=== PATIENT | female | born 1945 | race Caucasian/White ===

== ENCOUNTER 2016-12-18 07:49 | Day surgery (SDC) | payer MEDICARE, OTHER ==
[~2016-12-18] VITALS: Ht 160 cm; Wt 99.0 kg
[2016-12-18] MEDS ORDERED: LACTATED RINGERS 1,000 ML IV SCH (08:24)
[2016-12-18 08:27] VITALS: BP 143/82
[2016-12-18] MEDS ORDERED: LIDOCAINE 1%, 2ML SQ PRN (08:30)
[2016-12-18] MEDS ORDERED: METO1TAB18 PO (08:44)
[2016-12-18] MEDS ORDERED: VERA120T5 PO (08:44)
[2016-12-18] MEDS ORDERED: LOPRESSOR PO (08:45)
[2016-12-18] MEDS ORDERED: LIDOCAINE 1%, 2ML ONE (09:06)
[2016-12-18] MEDS ORDERED: OXYcodone 5 MG/5 ML ORAL.SOL UDC PO PRN (10:30)
[2016-12-18] MEDS ORDERED: hydrALAzine 20 MG/ML, 1ML IV PRN (10:30)
[2016-12-18] MEDS ORDERED: MEPERIDINE/PF 25MG/0.5ML IVPush PRN (10:30)
[2016-12-18] MEDS ORDERED: ACETAMINOPHEN 325 MG TABLET PO PRN (10:30)
[2016-12-18] MEDS ORDERED: LABETALOL 5MG/ML, 20ML IV PRN (10:30)
[2016-12-18] MEDS ORDERED: MIDAZOLAM 1 MG/ML, 2ML IV PRN (10:30)
[2016-12-18] MEDS ORDERED: PROMETHAZINE 25 MG/ML, 1ML IV PRN (10:30)
[2016-12-18] MEDS ORDERED: ONDANSETRON 2MG/ML, 2ML IVPush PRN (10:30)
[2016-12-18] MEDS ORDERED: HYDROmorphone 1 MG/ML, 1ML IV PRN (10:30)
[2016-12-18] MEDS ORDERED: FENTANYL PF 100 MCG/2ML IV PRN (10:30)
[2016-12-18] MEDS ORDERED: ALBUTEROL SULFATE 2.5 MG/3 ML NPPB PRN (10:30)
[2016-12-18] MEDS ORDERED: PROPOFOL 10 MG/ML, 20ML ONE (15:32)
[2016-12-18] MEDS ORDERED: DEXAMETHASONE 4 MG/ML, 1ML ONE (15:32)
[2016-12-18] MEDS ORDERED: ONDANSETRON 2MG/ML, 2ML ONE (15:32)
[2016-12-18] MEDS ORDERED: EPHEDRINE 50 MG/ML, 1ML ONE (15:32)
== END 2016-12-18 12:21 ==
LOC: OUT 07:49
PROVIDERS: ATTEND Internal Medicine Geriatric Medicine
DX: K22.8 Other specified diseases of esophagus (principal); K21.9 Gastro-esophageal reflux disease without esophagitis; K44.9 Diaphragmatic hernia without obstruction or gangrene; Z87.39 Personal history of other diseases of the musculoskeletal system and connective tissue; Z90.49 Acquired absence of other specified parts of digestive tract
CPT/HCPCS: 43238; 88104; 88172; 88173; 88305; 93005; J1100; J2405; J2704; J7120

== ENCOUNTER → 2017-10-23 | Outpatient (CLI) | payer MEDICARE, OTHER ==
[~2017-10-23] MED LIST: LOPRESSOR PO; METO1TAB18 PO; VERA120T5 PO
== END ==
LOC: STAR 13:45
PROVIDERS: ATTEND Internal Medicine Geriatric Medicine
DX: K22.8 Other specified diseases of esophagus (principal)
CPT/HCPCS: 93005

== ENCOUNTER → 2017-10-23 | Outpatient (CLI) | payer MEDICARE, OTHER | LOC: CFH 12:09 | PROVIDERS: ATTEND Obstetrics & Gynecology Gynecology | DX: Z12.31 Encounter for screening mammogram for malignant neoplasm of breast (principal) | CPT/HCPCS: 77067 ==

== ENCOUNTER 2017-10-29 08:52 | Day surgery (SDC) | payer MEDICARE, OTHER ==
[~2017-10-29] VITALS: Ht 160 cm; Wt 100.9 kg
[2017-10-29] MEDS ORDERED: LACTATED RINGERS 1,000 ML IV SCH (09:16)
[2017-10-29 09:42] VITALS: BP 144/88
[2017-10-29] MEDS ORDERED: PROPOFOL 10 MG/ML, 20ML ONE ×3 (10:57→11:13)
[2017-10-29] MEDS ORDERED: LIDOCAINE-MPF 2% ,5ML ONE (11:10)
[2017-10-29] MEDS ORDERED: ONDANSETRON 2MG/ML, 2ML IVPush PRN (11:30)
== END 2017-10-29 12:45 ==
LOC: OUT 08:52
PROVIDERS: ATTEND Internal Medicine Geriatric Medicine
DX: K22.8 Other specified diseases of esophagus (principal)
CPT/HCPCS: 43259; J2704; J3490; J7120

== ENCOUNTER 2020-02-12 10:04 | Outpatient (CLI) | payer MEDICARE, OTHER ==
[~2020-02-12 10:04] MED LIST changes: +VERA120T13 PO; -VERA120T5 PO
[2020-02-12 10:55] LABS: BASOPHILS # (AUTO) 0.03 x10^3/uL (0-0.1); BASOPHILS % (AUTO) 1 % (0-1); EOSINOPHILS # (AUTO) 0.09 x10^3/uL (0-0.4); EOSINOPHILS % (AUTO) 1 % (1-7); LYMPHOCYTES # (AUTO) 2.22 x10^3/uL (1-3.4); LYMPHOCYTES % (AUTO) 32 % (22-44); MD NO; MEAN CORPUSCULAR HEMOGLOBIN 30.1 pg (27.0-34.8); MEAN CORPUSCULAR HGB CONC 33.1 g/dL (32.4-35.8); MEAN CORPUSCULAR VOLUME 90.9 fL (80-100); MEAN PLATELET VOLUME 7.4 fL (7.4-10.4); MONOCYTES # (AUTO) 0.55 x10^3/uL (0.2-0.8); MONOCYTES % (AUTO) 8 % (2-9); NEUTROPHILS # (AUTO) 4.01 x10^3/uL (1.8-6.8); NEUTROPHILS % (AUTO) 58 % (42-75); PLATELET COUNT 247 x10^3/uL (130-400); RED BLOOD COUNT 5.09 x10^6/uL (3.82-5.3); RED CELL DISTRIBUTION WIDTH 14.3 % (9.6-15.2)
[2020-02-12 11:05] LABS: INTERNATIONAL NORMALIZED RATIO 1.1 (0.93-1.1); PROTHROMBIN TIME 11.7 Seconds (9.6-11.5)
[2020-02-12 11:07] LABS: ANION GAP 7 mmol/L (5-15); CHLORIDE 109 mmol/L (98-107); CREATININE 0.74 mg/dL (0.55-1.02)
[2020-02-12] MEDS ORDERED: [UNRECOGNIZED DRUG - CODE] PO (11:19)
[2020-02-12] MEDS ORDERED: LACT1CAP35 PO (11:19)
[2020-02-12] MEDS ORDERED: MULT-326 PO (11:19)
[2020-02-12] MEDS ORDERED: VERA180T6 PO (11:19)
== END 2020-02-12 23:59 | disposition home or self-care (01) ==
LOC: STAR 10:04
PROVIDERS: ATTEND Orthopaedic Surgery
DX: Z01.818 Encounter for other preprocedural examination (principal); M17.11 Unilateral primary osteoarthritis, right knee
CPT/HCPCS: 36415; 80048; 83036; 85025; 85610; 85730; 87081; 87147; 93005

== ENCOUNTER 2020-02-17 09:30 | Observation (INO) | payer MEDICARE, OTHER ==
[~2020-02-17] VITALS: Ht 157.5 cm; Wt 109.0 kg
[2020-02-17] MEDS: NS + 20MEQ KCL 1,000 ML IV SCH ×2 (06:50→20:49)
[2020-02-17] MEDS: DOCUSATE 100 MG CAPSULE PO SCH ×2 (09:00→20:48)
[~2020-02-17 09:30] MED LIST changes: +ACETAMINOPHEN 650 MG/20.3 ML UDC PO PRN; +BISACODYL 10 MG SUPP PR PRN; +DIPHENHYDRAMINE 50 MG CAPSULE PO PRN; +EPINEPHRINE 1 MG/ML, 1ML ONE; +HYDROmorphone 1 MG/ML, 1ML INJ IV PRN; +KETOROLAC 60 MG/2 ML ONE; +LACT1CAP35 PO; +MAGNESIUM HYDROXIDE 8%, 30ML UDC PO PRN; +METOPROLOL TARTRATE 50 MG TAB PO SCH; +MULT-326 PO; +OXYcodone IR 5MG TABLET PO PRN; +ROPIvacaine/PF 0.5%, 20 ML ONE; +ROPIvacaine/PF 0.5%, 30 ML ONE; +SENNA/DOCUSATE TABLET PO PRN; +SODIUM CHLORIDE 0.9% 50 ML ONE; +TRANEXAMIC ACID 100 MG/ML, 10ML ONE; +VANCOMYCIN 1,000 MG ONE; +VERA180T6 PO; +VERAPAMIL 120MG TABLET PO SCH; +[UNRECOGNIZED DRUG - CODE] PO
[2020-02-17] MEDS ORDERED: MIDAZOLAM 1 MG/ML, 2ML ONE (09:32)
[2020-02-17] MEDS ORDERED: FENTANYL PF 250 MCG/5ML ONE (09:32)
[2020-02-17] MEDS ORDERED: LACTATED RINGERS 1,000 ML IV SCH (09:54)
[2020-02-17 09:58] VITALS: BP 137/89
[2020-02-17] MEDS ORDERED: CHLORHEXIDINE 15 ML UDC MM ONE (10:00)
[2020-02-17] MEDS ORDERED: CHLORHEXIDINE 15 ML UDC ONE (10:08)
[2020-02-17] MEDS ORDERED: ACETAMINOPHEN 500 MG TABLET PO ONE (10:30)
[2020-02-17] MEDS ORDERED: GABAPENTIN 300 MG CAPSULE PO ONE (10:30)
[2020-02-17] MEDS ORDERED: METOPROLOL TARTRATE 50 MG TAB PO SCH (10:45)
[2020-02-17] MEDS ORDERED: PROPOFOL 10 MG/ML, 20ML ONE (11:22)
[2020-02-17] MEDS ORDERED: CEFAZOLIN 1,000 MG ONE (11:22)
[2020-02-17] MEDS ORDERED: GLYCOPYRROLATE 0.2MG/1ML, 5ML ONE (11:22)
[2020-02-17] MEDS ORDERED: ROCURONIUM 10 MG/ML,10ML ONE (11:22)
[2020-02-17] MEDS ORDERED: ONDANSETRON 2MG/ML, 2ML ONE (11:22)
[2020-02-17] MEDS ORDERED: NEOSTIGMINE 1 MG/ML, 10ML ONE (11:22)
[2020-02-17] MEDS ORDERED: HYDROmorphone 1 MG/ML, 1ML INJ IVPush PRN (12:00)
[2020-02-17] MEDS ORDERED: PROMETHAZINE 25 MG/ML, 1ML IVPush PRN (12:00)
[2020-02-17] MEDS ORDERED: ONDANSETRON 2MG/ML, 2ML IVPush PRN (12:00)
[2020-02-17] MEDS ORDERED: OXYcodone 5 MG/5 ML ORAL.SOL UDC PO PRN (12:00)
[2020-02-17] MEDS ORDERED: MEPERIDINE/PF 25MG/0.5ML IVPush PRN (12:00)
[2020-02-17] MEDS ORDERED: hydrALAzine 20 MG/ML, 1ML IV PRN (12:00)
[2020-02-17] MEDS ORDERED: FENTANYL PF 100 MCG/2ML ONE ×2 (12:51→12:57)
[2020-02-17] MEDS ORDERED: OXYcodone 5 MG/5 ML ORAL.SOL UDC ONE (12:52)
[2020-02-17] MEDS: FENTANYL PF 100 MCG/2ML IV PRN ×3 (12:55→13:12)
[2020-02-17] MEDS ORDERED: HYDROmorphone 1 MG/ML, 1ML INJ ONE (13:23)
[2020-02-17] MEDS: ONDANSETRON 4 MG TABLET PO PRN (14:29)
[2020-02-17] MEDS: ONDANSETRON 2MG/ML, 2ML IV PRN (14:30)
[2020-02-17] MEDS ORDERED: PROMETHAZINE 25 MG/ML, 1ML IM PRN (18:00)
[2020-02-17] MEDS: ASPIRIN 81 MG TABLET EC PO SCH (18:17)
[2020-02-17 18:51] VITALS: BP 112/74
[2020-02-17] MEDS: HYDROcodone/APAP 5/325 TABLET PO PRN (19:46)
[2020-02-17] MEDS: CEFAZOLIN PMX 2GM/50ML 50 ML IVPB SCH (20:51)
[2020-02-17] MEDS ORDERED: ZOLPIDEM 5MG TABLET PO PRN (21:00)
[2020-02-17] MEDS ORDERED: VERAPAMIL ER 180MG TABLET.ER PO SCH (21:00)
[2020-02-18 00:57] VITALS: BP 152/84
[2020-02-18] MEDS: HYDROcodone/APAP 5/325 TABLET PO PRN ×2 (02:09→07:30)
[2020-02-18 03:14] VITALS: BP 130/74
[2020-02-18] MEDS: CEFAZOLIN PMX 2GM/50ML 50 ML IVPB SCH (04:15)
[2020-02-18] MEDS: ASPIRIN 81 MG TABLET EC PO SCH (05:19)
[2020-02-18] MEDS: ONDANSETRON 2MG/ML, 2ML IV PRN (05:26)
[2020-02-18] MEDS ORDERED: DEXAMETHASONE 4 MG/ML, 1ML IVPush SCH (06:00)
[2020-02-18 06:44] VITALS: BP 108/65
[2020-02-18] MEDS: DOCUSATE 100 MG CAPSULE PO SCH (07:29)
[2020-02-18] MEDS: NS + 20MEQ KCL 1,000 ML IV SCH (08:30)
[2020-02-18] MEDS ORDERED: ONDA4TAB7 PO (09:14)
[2020-02-18] MEDS ORDERED: OXYC5CAP2 PO (10:50)
[2020-02-18] MEDS ORDERED: MELO7.5T5 PO (10:51)
[2020-02-18] MEDS ORDERED: TRAM50TA2 PO (10:51)
[2020-02-18] MEDS: ONDANSETRON 4 MG TABLET PO PRN (10:54)
== END 2020-02-18 11:15 | disposition home or self-care (01) ==
LOC: OUT 09:30 → 4NE 16:16 → OUT 20:09 → 4NE 20:10 → UNDOADMOB 20:16 → DCLOUNGE 02-18 11:01
PROVIDERS: ADMIT Orthopaedic Surgery; ATTEND Orthopaedic Surgery
DX: M17.11 Unilateral primary osteoarthritis, right knee (principal); M25.512 Pain in left shoulder; M22.42 Chondromalacia patellae, left knee; S83.282A Other tear of lateral meniscus, current injury, left knee, initial encounter; K21.9 Gastro-esophageal reflux disease without esophagitis; I10 Essential (primary) hypertension; G47.30 Sleep apnea, unspecified; X58.XXXA Exposure to other specified factors, initial encounter; Y93.89 Activity, other specified; Y92.89 Other specified places as the place of occurrence of the external cause; Z79.899 Other long term (current) drug therapy
CPT/HCPCS: 27447; 36415; 80048; 83036; 85014; 85018; 85025; 85610; 85730; 87081; 87147; 87635; 93005; 96365; 96366; 96375; 97110; 97161; 97165; C1713; C1776; G0378; J0171; J0690; J1100; J1170; J1885; J2250; J2405; J2704; J2710; J2795; J3010; J3370; J3480; J7120; Q0162

== ENCOUNTER 2021-05-25 07:14 | Day surgery (SDC) | payer MEDICARE, OTHER ==
[~2021-05-25] VITALS: Ht 158.8 cm; Wt 88.6 kg
[2021-05-25 08:15] VITALS: BP 139/76
== END 2021-05-25 11:05 | disposition home or self-care (01) ==
LOC: OUT 07:14 → EDSTATUS 09:00 → OUT 11:05
PROVIDERS: ATTEND Orthopaedic Surgery
DX: M25.512 Pain in left shoulder (principal); I10 Essential (primary) hypertension; Z88.8 Allergy status to other drugs, medicaments and biological substances; Z96.612 Presence of left artificial shoulder joint
CPT/HCPCS: 73221; 99156; 99157; J2250; J3010; J7040